=== PATIENT | male | born 1955 | race Caucasian/White ===

== ENCOUNTER 2021-03-24 19:36 | Day surgery (SDC) | payer OTHER ==
[2021-03-24 19:51] LABS: BASOPHIL 0.2 % (0-2); EOSINOPHIL 3.1 % (0-7); HCT 41.7 % (42.0-52.0); LYMPHOCYTE 11.1 % (15-48); MCH 28.6 pg (25.0-31.0); MCHC 33.6 g/dL (32.0-36.0); MCV 85.3 fL (78.0-100.0); MONOCYTE 11.3 % (0-12); MPV 9.3 fL (6.0-9.5); NEUTROPHIL 73.5 % (41-80); NRBC 0; PLT 298 K/uL (150-400); RBC 4.89 M/uL (4.70-6.00); RDW 15.4 % (11.5-14.0); WBC 10.8 K/uL (4.0-10.5)
[2021-03-24 20:06] LABS: ALBUMIN 2.6 g/dL (3.4-5.0); BILIRUBIN - TOTAL 0.4 mg/dL (0.2-1.0); BUN/CREAT RATIO (CALC) 18.8 RATIO; CREATININE 0.85 mg/dL (0.67-1.17); GLOBULIN (CALCULATION) 4.4 g/dL; POTASSIUM 4.5 mmol/L (3.5-5.1)
[2021-03-24 21:04] LABS: INFLUENZA A NAA NEGATIVE (NEGATIVE)
[2021-03-24 21:18] LABS: CORONAVIRUS 2019 SARS-COV-2 POSITIVE (NEGATIVE)
== END 2021-03-25 05:08 | disposition home or self-care (01) ==
LOC: FER 19:36 → FAS 22:22 → FER 03-25 05:08
PROVIDERS: Internal Medicine
DX: T18.128A Food in esophagus causing other injury, initial encounter (principal); K14.8 Other diseases of tongue; K44.9 Diaphragmatic hernia without obstruction or gangrene; U07.1 COVID-19; I10 Essential (primary) hypertension; I25.10 Atherosclerotic heart disease of native coronary artery without angina pectoris; E03.9 Hypothyroidism, unspecified; Z93.3 Colostomy status; Z87.891 Personal history of nicotine dependence; Z91.041 Radiographic dye allergy status; Z91.013 Allergy to seafood; Z79.82 Long term (current) use of aspirin; Z79.899 Other long term (current) drug therapy
CPT/HCPCS: 36415; 70490; 71250; 80053; 83880; 84484; 85025; 93005; J1610; J2405; J2550; J7030; U0002